=== PATIENT | male | born 1975 | race Two or more races ===

== ENCOUNTER → 2020-12-31 | Emergency (ER) | payer OTHER ==
[~2020-12-31] VITALS: Ht 167.6 cm; Wt 106.6 kg
[~2020-12-31] MED LIST: MEDROLPACK PO; ZITHROMAX500 MG PO
== END | disposition home or self-care (01) ==
LOC: ER 10:43
DX: U07.1 COVID-19 (principal); Z03.818 Encounter for observation for suspected exposure to other biological agents ruled out; R53.81 Other malaise; R50.9 Fever, unspecified

== ENCOUNTER 2021-01-05 02:42 | Emergency (ER) | payer OTHER ==
[~2021-01-05] VITALS: Ht 170.2 cm; Wt 77.1 kg
[2021-01-05] MEDS ORDERED: MEDROLPACK PO (07:11)
[2021-01-05] MEDS ORDERED: ZITHROMAX500 MG PO (07:11)
== END 2021-01-05 08:09 | disposition home or self-care (01) ==
LOC: ER 02:42
DX: U07.1 COVID-19 (principal); J12.89 Other viral pneumonia; Z03.818 Encounter for observation for suspected exposure to other biological agents ruled out; R05 Cough; R50.9 Fever, unspecified

== ENCOUNTER 2021-01-06 17:31 | Inpatient (IN) | payer OTHER ==
[~2021-01-06] VITALS: Ht 167.6 cm; Wt 106.6 kg
--- NOTE | 2021-01-06 17:46 | NUR ---
SE RECIBE PACIENTE ALERTA, ORIENTADO X 3 ESFERAS REFIERE TENER DIFICULTAD RESPIRATORIA, REFIERE SER COVID POSITIVO, Y PRESENTAR DIFICULTAD PARA RESPIRAR Y TOS PRODUCTIVA SE ESTIMAN S/V SATURACION DE OXIGENO POR OXIMETRIA DE PULSO 92%. SE PRESENTA A SE UBICA EN AREA DE AISLAMIENTO.
--- NOTE | 2021-01-06 18:32 | NUR ---
PACIENTE EVALUADO POR MD. ADAM GEE LE ORIENTA SOBRE TRATAMIENTO A SEGUIR. LE EXTRAE MUESTRAS DE LABORATORIO, UTILIZANDO MEDIDAS ASEPTICAS. LE ADMINISTRA MEDICAMENTOS SHELLEY ORDEN MEDICA, NO PRESENTA REACCION ADVERSA AL MOMENTO. SE MANTIENE PTE BAJO OBSERVACION POR CAMBIOS.
--- NOTE | 2021-01-07 00:09 | NUR ---
PACIENTE ALERTA Y ORIENTADO POR RAUDEL EN K-6 AREA DE COVID. SE OFRECE NORMAN PARA EVALUAR CONDICION Y MEDIR S/V. PACIENTE CON H/L PATENTE ANGIO #2O BRAZO IZQ AREA SILVESTRE DE EDEMA Y/O ERITEMA. CONECTADO A OXIGENO DE PARED CON VENTURY MASK BARANDAS ELEVADAS POR NORTON SEGURIDAD. SE MONITOREA POR CAMBIOS SIGNFICATIVOS.
--- NOTE | 2021-01-07 07:23 | NUR ---
SE RECIBE PTE DEL TURNO ANTERIOR EN DINORA NIVEL MAS BAJO CON BARANDAS ELEVADAS POR PRECAUCION. PACIENTE EN UNIDAD DE AISLAMIENTO CON PRESION NEGATIVA POR COVID POSITIVO. PACIENTE CON ORDEN DE VENTURY MASK AL 50%.
== END 2021-01-15 17:04 | disposition home or self-care (01) | DRG 177 ==
LOC: ER 17:31 → MEDJ 01-07 10:16 → SEC-K 01-07 10:16 → MEDJ 01-07 10:25
PROVIDERS: ADMIT Internal Medicine; ATTEND Internal Medicine
PROC: 4A12X4Z Monitoring of Cardiac Electrical Activity, External Approach (ICD-10-PCS; 2021-01-07)
PROC: 8E0ZXY6 Isolation (ICD-10-PCS; 2021-01-07)
PROC: XW033E5 Introduction of Remdesivir Anti-infective into Peripheral Vein, Percutaneous Approach, New Technology Group 5 (ICD-10-PCS; principal; 2021-01-08)
PROC: 4A033R1 Measurement of Arterial Saturation, Peripheral, Percutaneous Approach (ICD-10-PCS; 2021-01-08)
DX: U07.1 COVID-19 (principal); J12.82 Pneumonia due to coronavirus disease 2019; R06.02 Shortness of breath; R09.02 Hypoxemia